=== PATIENT | male | born 2000 | race Caucasian/White ===

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

== ENCOUNTER 2020-12-02 19:05 | Emergency (ER) | payer MEDICAID, OTHER ==
[~2020-12-02] VITALS: Ht 177.8 cm; Wt 74.8 kg
[2020-12-02 19:19] VITALS: BP 116/64
--- NOTE | 2020-12-02 19:25 | NUR ---
AMBULATES TO BED 7 FROM TRIAGE
--- NOTE | 2020-12-02 20:20 | NUR ---
Patient assessment completed by MANJU, no nursing interventions required at this time.
[2020-12-02 20:38] VITALS: BP 116/64
== END 2020-12-02 20:38 | disposition home or self-care (01) ==
LOC: MED 19:05
DX: R42 Dizziness and giddiness (principal); R00.2 Palpitations
CPT/HCPCS: 93005; 99283

== ENCOUNTER 2021-04-11 18:15 | Emergency (ER) | payer MEDICAID ==
[~2021-04-11] VITALS: Ht 170.2 cm; Wt 76.7 kg
[2021-04-11 18:41] VITALS: BP 131/89
--- NOTE | 2021-04-11 22:45 | NUR ---
RESULTS BACK AND NOTED BY ERMD AND FOR D/C
[2021-04-11] MEDS ORDERED: DEC4 PO (22:51)
[2021-04-11 23:00] VITALS: BP 119/79
--- NOTE | 2021-04-11 23:00 | NUR ---
Patient discharged with v/s stable. Written and verbal after care instructions given and explained. Patient alert, oriented and verbalized understanding of instructions. Ambulatory with steady gait. All questions addressed prior to discharge. ID band removed. Patient advised to follow up with PMD. Rx of DECADRON given. Patient educated on indication of medication including possible reaction and side effects. Opportunity to ask questions provided and answered.
== END 2021-04-11 23:00 | disposition home or self-care (01) ==
LOC: MED 18:15
DX: J20.9 Acute bronchitis, unspecified (principal)
CPT/HCPCS: 71046; 99283

== ENCOUNTER 2021-05-21 12:29 | Emergency (ER) | payer MEDICAID ==
[~2021-05-21] VITALS: Ht 171.4 cm; Wt 80.5 kg
[~2021-05-21 12:29] MED LIST: DEC4 PO
[2021-05-21 12:38] VITALS: BP 153/88
--- NOTE | 2021-05-21 12:46 | NUR ---
PATIENT AMBULATED TO BED 9.
--- NOTE | 2021-05-21 12:57 | NUR ---
DR. MALDONADO BEDSIDE EVALUATING PT
--- NOTE | 2021-05-21 13:11 | NUR ---
21 Y/O MALE PATIENT PRESENTS TO ED WITH EPIGASTRIC PAIN RADIATING FROM RIGHT TO LEFT. PT STATES HE HAS BEEN "FEELING BAD OFF/ON FOR ABOUT A MONTH. DENIES N/V/D; SKIN IS PINK/WARM/DRY; AAOX4 WITH EVEN AND STEADY GAIT; LUNGS CLEAR BL; HR EVEN AND REGULAR; PT DENIES ANY FEVER, CP, SOB, OR COUGH AT THIS TIME; PATIENT STATES PAIN OF 8/10 AT THIS TIME; VSS; PATIENT POSITIONED FOR COMFORT; HOB ELEVATED; BEDRAILS UP X1; BED DOWN. ER MD MADE AWARE OF PT STATUS. HX: NONE NKDA NO MEDS
[2021-05-21] MEDS ORDERED: IBUP-1842 PO (14:21)
[2021-05-21 14:56] VITALS: BP 136/72
--- NOTE | 2021-05-21 14:56 | NUR ---
Patient discharged with v/s stable. Written and verbal after care instructions given and explained. Patient alert, oriented and verbalized understanding of instructions. Ambulatory with steady gait. All questions addressed prior to discharge. ID band removed. Patient advised to follow up with PMD. Rx of IBUPROFEN given. Patient educated on indication of medication including possible reaction and side effects. Opportunity to ask questions provided and answered. PT HAS CALM DEMEANOR, UNLABORED BREATHING WITH BILATERAL CHEST RISE/FALL, STEADY GAIT W/O ASSISTANCE.
== END 2021-05-21 14:56 | disposition home or self-care (01) ==
LOC: MED 12:29
DX: R10.9 Unspecified abdominal pain (principal); R11.10 Vomiting, unspecified
CPT/HCPCS: 76705; 99284; Q0092

== ENCOUNTER 2021-06-02 17:15 | Emergency (ER) | payer MEDICAID ==
[~2021-06-02] VITALS: Ht 170.2 cm; Wt 80.3 kg
[~2021-06-02 17:15] MED LIST changes: +IBUP-1842 PO
--- NOTE | 2021-06-02 17:21 | NUR ---
pt called in lobby and outside, no response
[2021-06-02 17:22] VITALS: BP 136/78
[2021-06-02] MEDS ORDERED: ALBU0.0912 IH (17:40)
[2021-06-02] MEDS ORDERED: FLONAS NS (17:40)
[2021-06-02] MEDS ORDERED: PRED20TA5 PO (17:40)
[2021-06-02] MEDS ORDERED: ACET-10509 PO (17:42)
[2021-06-02 18:20] VITALS: BP 136/78
--- NOTE | 2021-06-02 18:21 | NUR ---
Patient discharged with v/s stable. Written and verbal after care instructions given and explained. Patient alert, oriented and verbalized understanding of instructions. Ambulatory with steady gait. All questions addressed prior to discharge. ID band removed. Patient advised to follow up with PMD. Rx of acetaminophen, albuterol, fluticasone, prednisone (sent) given. Patient educated on indication of medication including possible reaction and side effects. Opportunity to ask questions provided and answered.
== END 2021-06-02 18:20 | disposition home or self-care (01) ==
LOC: MED 17:15
DX: J40 Bronchitis, not specified as acute or chronic (principal); Z79.899 Other long term (current) drug therapy
CPT/HCPCS: 99283

== ENCOUNTER → 2021-11-26 | Emergency (ER) | payer SELFPAY ==
[~2021-11-26] VITALS: Ht 167.6 cm; Wt 83.9 kg
[~2021-11-26] MED LIST changes: +ACET-10509 PO; +ALBU0.0912 IH; +FLONAS NS; +IBUP-2213 PO; +KETOROLAC 60 MG/2 ML VIAL IM ONE; +PRED20TA5 PO
[2021-11-26 17:51] VITALS: BP 127/79
--- NOTE | 2021-11-26 18:04 | NUR ---
PT AMBULATED TO BED 1
--- NOTE | 2021-11-26 18:06 | NUR ---
COVID dennis and flu swabs collected, handed to Ani, CPT
--- NOTE | 2021-11-26 19:15 | NUR ---
Pt report given to MUSTAPHA CARMONA. Transfer of care at this time.
[2021-11-26 19:58] VITALS: BP 127/79
--- NOTE | 2021-11-26 19:59 | NUR ---
Patient discharged with v/s stable. Written and verbal after care instructions given and explained. Patient alert, oriented and verbalized understanding of instructions. Ambulatory with steady gait. All questions addressed prior to discharge. ID band removed. Patient advised to follow up with PMD. Rx of IBUPROFEN & PREDNISONE given. Patient educated on indication of medication including possible reaction and side effects. Opportunity to ask questions provided and answered.
== END | disposition home or self-care (01) ==
LOC: MED 17:47
DX: R50.9 Fever, unspecified (principal); Z20.822 Contact with and (suspected) exposure to COVID-19; M79.10 Myalgia, unspecified site; J02.9 Acute pharyngitis, unspecified
CPT/HCPCS: 87426; 87804; 96372; 99283; J1885

== ENCOUNTER 2022-08-26 10:20 | Emergency (ER) | payer SELFPAY ==
[~2022-08-26] VITALS: Ht 172.7 cm; Wt 84.4 kg
[~2022-08-26 10:20] MED LIST changes: -KETOROLAC 60 MG/2 ML VIAL IM ONE
[2022-08-26 10:35] VITALS: BP 133/73
[2022-08-26 11:10] LABS: APPEARANCE,URINE CLEAR (CLEAR); BILIRUBIN,URINE NEGATIVE (NEGATIVE); BLOOD, URINE NEGATIVE (NEGATIVE); COLOR,URINE YELLOW (YELLOW); LEUKOCYTE ESTERASE ,URINE NEGATIVE (NEGATIVE); NITRITE, URINE NEGATIVE (NEGATIVE); UGLUCOSE NEGATIVE (NEGATIVE)
[2022-08-26 11:35] LABS: BASOPHILS % (AUTO) 0.7 % (0.0-2.0); EOSINOPHILS # (AUTO) 0.1 K/uL (0-0.4); EOSINOPHILS % (AUTO) 2.1 % (0.0-4.0); HEMATOCRIT 46.2 % (36-52); HEMOGLOBIN 16.4 g/dL (12.0-18.0); LYMPHOCYTES # (AUTO) 1.7 K/uL (2.0-11.5); LYMPHOCYTES % (AUTO) 26.9 % (20.5-51.1); MEAN CORPUSCULAR HEMOGLOBIN 31 pg (27-31); MEAN CORPUSCULAR HGB CONC 36 g/dL (33-37); MEAN CORPUSCULAR VOLUME 86.9 fL (80-94); MONOCYTES # (AUTO) 0.5 K/uL (0.8-1.0); NEUTROPHILS # (AUTO) 4.1 K/uL (1.8-7.7); NEUTROPHILS % (AUTO) 63.3 % (42.2-75.2); PLATELET COUNT (AUTO) 299 K/uL (140-450); RED BLOOD CELL COUNT(AUTO) 5.31 MIL/uL (4.20-6.10); WHITE BLOOD COUNT (AUTO) 6.4 K/uL (4.8-10.8)
[2022-08-26 12:30] LABS: ALBUMIN 4.9 g/dL (3.4-5.0); ANION GAP 11.4 (8-16); CARBON DIOXIDE 29.2 mmol/L (21-32); CREATININE 0.8 mg/dL (0.6-1.3); POTASSIUM 5.6 mmol/L (3.5-5.1); TOTAL BILIRUBIN 0.6 mg/dL (0.0-1.0)
[2022-08-26] MEDS ORDERED: MAGN400S60 PO (12:45)
[2022-08-26] MEDS ORDERED: IBUP-2213 PO (12:45)
== END 2022-08-26 13:01 | disposition home or self-care (01) ==
LOC: MED 10:20
DX: R10.30 Lower abdominal pain, unspecified (principal); Z79.899 Other long term (current) drug therapy
CPT/HCPCS: 36415; 80053; 81003; 82150; 83690; 85025; 93005; 99285